=== PATIENT | female | born 1990 | race Caucasian/White ===

== ENCOUNTER 2021-07-19 14:43 | Outpatient (CLI) | payer MEDICAID, SELFPAY ==
--- NOTE | 2021-07-19 | DI.US_ITS ---
Exam(s) US PELVIS TRANSVAGINAL EXAM: US PELVIS TRANSVAGINAL CLINICAL HISTORY: PELVIC PAIN R10.2 ? OVARIAN CYST OR OVARIAN TORSION. TECHNIQUE: Transabdominal and transvaginal pelvic ultrasound was performed using standard protocol. COMPARISON: US OB US 2-3 TRIMESTER TRANSABD*P from 08/31/2012 FINDINGS: KIDNEYS: Congenitally absent right kidney. Left kidney measures 11.1 cm. No evidence of renal calcu li. No evidence of hydronephrosis. No renal mass or cyst identified. UTERUS: The patient has a uterus didelphys. This is a normal variant. Position: Retroverted. Size: Left: 7.3 long by 3.2 AP by 3.9 transverse cm. Right: 5.6 long by 3.7 AP by 2.9 transverse. Endometrium: Normal for patient's menstrual status. In the right uterus there is a round cystic struc ture present measuring 0.6 x 0.4 cm. There is a round internal structure present. The appearance ra ises a question of a intrauterine and yolk sac. Age based on the sac diameter would be 5 w eeks 2 days. Myometrium: Unremarkable. Cervix: Unremarkable. OVARIES: No evidence of torsion. Right: 1.2 x 0.5 x 0.8 cm Cyst or mass: None. Left: 2.3 x 1.3 x 1.5 cm Cyst or mass: None. DOPPLER: Color: Symmetric and uniform flow to both ovaries. No hyperemia. Duplex: Normal ovarian arterial waveforms visualized. CUL-DE-SAC: Free fluid: None. Other: None. IMPRESSION: 1. Congenitally absent right kidney. Unremarkable left kidney. 2. Uterine didelphys. 3. In the right endometrial canal there is a cystic structure with the appearance 7 intrauterine gest ation and yolk sac. Please correlate with the patient's beta HCG level. Estimated gestational age i s 5 weeks 2 days. 4. Unremarkable bilateral ovaries. No evidence of torsion. 5. Results of this exam have been verbally communicated with provider. DATA REPOSITORY:
== END 2021-07-19 15:03 ==
PROVIDERS: PCP Internal Medicine; Visit Provider Physician Assistant Medical
DX: R10.2 Pelvic and perineal pain (principal); Q51.28 Other and unspecified doubling of uterus; R93.5 Abnormal findings on diagnostic imaging of other abdominal regions, including retroperitoneum
CPT/HCPCS: 76830; 76856

== ENCOUNTER 2021-07-22 13:27 | Emergency (ER) | payer MEDICAID, SELFPAY ==
[2021-07-22 13:32] VITALS: BP 115/77; PULSE 100; RESP 16; TEMP 36.7; O2SAT 99
--- NOTE | 2021-07-22 13:42 | NUR.NOTE ---
Ambulates to restroom with steady gait. Instructed to provide clean catch urine specimen.Nursing Note:
--- NOTE | 2021-07-22 13:45 | DI.US_ITS ---
Exam(s) US PELVIS TRANSVAGINAL EXAM: US PELVIS TRANSVAGINAL CLINICAL HISTORY: vaginal bleeding TECHNIQUE: Transabdominal and transvaginal imaging was performed using standard protocol. COMPARISON: US US PELVIS TRANSVAGINAL from 07/19/2021 US US PELVIS TRANSVAGINAL from 07/19/2021 FINDINGS: KIDNEYS: Left kidney normal in size. Congenitally absent right kidney.. No evidence of renal calcul i. No evidence of hydronephrosis. No renal mass or cyst identified. UTERUS: Anteverted. Didelphys. 7.5 by 2.8 x 4.2 cm. Endometrium: 4 millimeters Myometrium: Unremarkable. Cervix: Several nabothian cysts. In the cervical region, there is a rounded cystic area with a centr al appearing cyst measuring 7 millimeters in greatest dimension. This could represent a gestational sac versus a complex nabothian cyst. No pole or cardiac activity is seen. OVARIES: Right: Cyst or mass: None. Left: Cyst or mass: None. DOPPLER: Color: Symmetric and uniform flow to both ovaries. No hyperemia. Duplex: Normal ovarian arterial waveforms visualized. CUL-DE-SAC: Free fluid: None. IMPRESSION: 1. Didelphys uterus. Cystic lesion in cervix is unchanged in size and appearance and may represent a complex cyst rather than gestational sac. 2. Unremarkable bilateral ovaries. DATA REPOSITORY:
[2021-07-22 14:07] VITALS: PULSE 82; RESP 16; O2SAT 100
[2021-07-22 14:09] LABS: Abs Immature Grans 0.02 10^3/uL (0.0-0.06); Absolute Basophil Count 0.02 10^3/uL (0.0-0.2); Absolute Eosinophil Count 0.12 10^3/uL (0.0-0.7); Absolute Lymphocyte Count 2.92 10^3/uL (1.2-3.4); Absolute Monocyte Count 0.79 10^3/uL (0.1-0.8); Basophils % 0.2; Eosinophils % 1.4; HGB 13.4 g/dL (11.2-15.7); Immature Grans % 0.2; Lymphocytes % 34.1; MCH 29.1 pg (27.0-33.0); MCHC 31.9 % (32.0-36.0); MCV 91.3 fL (80-95); MPV 11.1 fL (8.0-11.0); Monocytes % 9.2; Neutrophils % 54.9; Nucleated RBC 0 %; Platelet Count 231 10^3/uL (130-400); RDW 13.2 % (11.7-14.6); RDW-SD 43.6 fL; WBC 8.57 10^3/uL (4.4-10.8)
[2021-07-22 14:19] LABS: Bilirubin Negative (Negative); Blood Large (Negative); Clarity Clear (Clear); Glucose Negative (Negative); Ketones Negative (Negative); Leukocyte Esterase Negative (Negative); Nitrite Negative (Negative); Urobilinogen 0.2 EU/dL (Up TO 0.2); pH 5.5 (5-8)
[2021-07-22 14:27] LABS: Bacteria Negative HPF (Negative); C & S Indicated? No; Casts Negative LPF (Negative); Crystals Negative HPF (Negative); Epithelial Cells Rare HPF (Negative); Mucus Negative (Negative); WBC 0-2 HPF (0-5)
[2021-07-22 14:27] LABS: HCG Quant, Pregnancy < 1 mIU/mL (1-3)
--- NOTE | 2021-07-22 14:44 | NUR.NOTE ---
To DI for ultrasound per cart with technician trainee.Nursing Note:
--- NOTE | 2021-07-22 15:15 | ED.GENADUL_ITS ---
Discharge Plan Disposition Patient Disposition: HOME Condition: Stable Discharge Details Clinical Impression: Abdominal pain Primary Care Provider: Milan Loernzo ED Provider: Valentin Mena Home Meds and New Rx's Prescriptions: Continued Zafemy 150-35 mcg/24 hr patch weekly 1 patch transdermal DAILY RF: 0 Discharge Instructions Instructions: Abdominal Pain (ED) Additional Instructions: your lab work and ultrasound as well as cat scan did not show any emergent findings Follow up with your primary care provider and women's wellness [phone] if you feel more ill, have persistent vomit or fevers return to the emergency department Discharge Data Discharge Date/Time-TO BE ENTERED AT DEPARTURE: 07/22/21 18:30 Medical Decision Making <Flower Champagne MD - Last Filed: 07/29/21 08:08> Jeanie Jaquez is a 30-year-old woman G6, P3 who presented to emergency department with vaginal bleeding consistent with a heavy period per patient and suprapubic/right sided pelvic pain in setting of pelvic ultrasound 3 days ago showing possible IUP. On exam patient has suprapubic and right pelvic tenderness to palpation. Concern for ectopic, threatened/completed , ovarian torsion, hemorrhagic cyst, dysfunctional uterine bleeding, other less likely pelvic inflammatory disease, appendicitis or other acute intra-abdominal etiology of symptoms. Exam/history at this time is not consistent with sepsis, acute aortic pathology. Plan for IV placement, screening labs, pelvic ultrasound. Labs reviewed, hemoglobin 13.4, WBC 8.57, platelets 231, negative urine test, negative UA. Serum hCG is normal. Patient is not , continue with plan for pelvic ultrasound. Ultrasound shows gestational sac versus nabothian cyst, given normal serum hCG this finding represents cyst. I did discuss ultrasound findings with Dr. Nicky Boston of gynecology, who noted that given that patient never had positive test, it is unlikely that patient has been recently and gestational sac on ultrasound 3 days ago was likely this nabothian cyst. No further acute intervention recommended. On reassessment patient reports that she is continuing to have significant pain in the right pelvic area. Given laterality of pain with no right-sided ovarian findings on ultrasound, this is less likely to be PID/tubo-ovarian abscess, plan for CT to rule out appendicitis. Patient declines pelvic examination at this time. Patient signed out to Dr. Mena at time of shift change pending CT abdomen/pelvis and reassessment. Medical Records Medical records reviewed: Yes I reviewed the patient's medical records. Imaging Data Radiologic Study: Attestation: I personally reviewed and interpreted this imaging study as follows: Radiologist's impression: FINDINGS: KIDNEYS: Left kidney normal in size. Congenitally absent right kidney.. No evidence of renal calculi. No evidence of hydronephrosis. No renal mass or cyst identified. UTERUS: Anteverted. Didelphys. 7.5 by 2.8 x 4.2 cm. Endometrium: 4 millimeters Myometrium: Unremarkable. Cervix: Several nabothian cysts. In the cervical region, there is a rounded cystic area with a central appearing cyst measuring 7 millimeters in greatest dimension. This could represent a gestational sac versus a complex nabothian cyst. No pole or cardiac activity is seen. OVARIES: Right: Cyst or mass: None. Left: Cyst or mass: None. DOPPLER: Color: Symmetric and uniform flow to both ovaries. No hyperemia. Duplex: Normal ovarian arterial waveforms visualized. CUL-DE-SAC: Free fluid: None. IMPRESSION: 1. Didelphys uterus. Cystic lesion in cervix is unchanged in size and appearance and may represent a complex cyst rather than gestational sac. 2. Unremarkable bilateral ovaries. Lab Data Lab results reviewed: Yes I reviewed the patient's lab results. Labs: Laboratory Tests Range/Units 07/22/21 07/22/21 07/22/21 13:45 13:55 13:55 WBC (4.4-10.8) 10^3/uL 8.57 RBC (3.93-5.22) 10^6/uL 4.60 Hgb (11.2-15.7) g/dL 13.4 Hct (36.0-46.0) % 42.0 MCV (80-95) fL 91.3 MCH (27.0-33.0) pg 29.1 MCHC (32.0-36.0) % 31.9 L RDW (11.7-14.6) % 13.2 Plt Count (130-400) 10^3/uL 231 MPV (8.0-11.0) fL 11.1 H Immature Gran % 0.2 Neutrophils % 54.9 Lymphocytes % 34.1 Monocytes % 9.2 Eosinophils % 1.4 Basophils % 0.2 Nucleated RBC % % 0 Absolute Neutrophils (1.2-6.7) 10^3/uL 4.70 Absolute Lymphocytes (1.2-3.4) 10^3/uL 2.92 Absolute Monocytes (0.1-0.8) 10^3/uL 0.79 Absolute Eosinophils (0.0-0.7) 10^3/uL 0.12 Absolute Basophils (0.0-0.2) 10^3/uL 0.02 Beta HCG, Quant (1-3) mIU/mL < 1 L Urine Color (Yellow) Yellow Urine Clarity (Clear) Clear Urine pH (5-8) 5.5 Ur Specific [place] (1.005-1.025) 1.010 Urine Protein (Negative) mg/dL Negative Urine Ketones (Negative) mg/dL Negative Urine Blood (Negative) Large H Urine Nitrite (Negative) Negative Urine Bilirubin (Negative) Negative Urine Urobilinogen (Up TO 0.2) EU/dL 0.2 Ur Leukocyte Esterase (Negative) Negative Urine RBC (0-2) HPF 10-20 H Urine WBC (0-5) HPF 0-2 Ur Epithelial Cells (Negative) HPF Rare Urine Crystals (Negative) HPF Negative Urine Bacteria (Negative) HPF Negative Urine Casts (Negative) LPF Negative Urine Mucus (Negative) Negative Ur Culture Indicated? No Urine Glucose (Negative) mg/dL Negative Patient ABO/Rh Antibody Screen Range/Units 07/22/21 13:55 WBC (4.4-10.8) 10^3/uL RBC (3.93-5.22) 10^6/uL Hgb (11.2-15.7) g/dL Hct (36.0-46.0) % MCV (80-95) fL MCH (27.0-33.0) pg MCHC (32.0-36.0) % RDW (11.7-14.6) % Plt Count (130-400) 10^3/uL MPV (8.0-11.0) fL Immature Gran % Neutrophils % Lymphocytes % Monocytes % Eosinophils % Basophils % Nucleated RBC % % Absolute Neutrophils (1.2-6.7) 10^3/uL Absolute Lymphocytes (1.2-3.4) 10^3/uL Absolute Monocytes (0.1-0.8) 10^3/uL Absolute Eosinophils (0.0-0.7) 10^3/uL Absolute Basophils (0.0-0.2) 10^3/uL Beta HCG, Quant (1-3) mIU/mL Urine Color (Yellow) Urine Clarity (Clear) Urine pH (5-8) Ur Specific [place] (1.005-1.025) Urine Protein (Negative) mg/dL Urine Ketones (Negative) mg/dL Urine Blood (Negative) Urine Nitrite (Negative) Urine Bilirubin (Negative) Urine Urobilinogen (Up TO 0.2) EU/dL Ur Leukocyte Esterase (Negative) Urine RBC (0-2) HPF Urine WBC (0-5) HPF Ur Epithelial Cells (Negative) HPF Urine Crystals (Negative) HPF Urine Bacteria (Negative) HPF Urine Casts (Negative) LPF Urine Mucus (Negative) Ur Culture Indicated? Urine Glucose (Negative) mg/dL Patient ABO/Rh A Positive Antibody Screen NEGATIVE <Valentin Mena MD - Last Filed: 07/22/21 18:19> Patients ct shows no acute findings, has congenital absent right kidney she was aware of already and also mullerian duct anomaly of the uterus. She is stable, still has pain but has no tenderness or guarding of the abdomen, localizes the pain to the lower pelvis. Her u/s showed no torsion or other emergent findings. I offered to do a pelvic and speculum exam but she declined. I will have her f/u with obgyn as an outpatient, return precautions given Imaging Data Radiologic Study: Attestation: I personally reviewed and interpreted this imaging study as follows: Imaging: CT Scan Radiologist's impression: FINDINGS: Liver: Normal. No mass. Gallbladder and bile ducts: Normal. No calcified stones. No ductal dilation. Pancreas: Normal. No ductal dilation. Spleen: Normal. No splenomegaly. Adrenal glands: Normal. No mass. Kidneys and ureters: The right kidney is absent and the left kidney is slightly increased in size. No hydronephrosis or nephrolithiasis. Stomach and bowel: No obstruction. No mucosal thickening. Appendix: No evidence of appendicitis. Intraperitoneal space: No free air. No significant fluid collection. Vasculature: No abdominal aortic aneurysm. Lymph nodes: No enlarged lymph nodes. Urinary bladder: The urinary bladder is unremarkable. 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 Foci of hyperdensity within the uterine canal may represent hemorrhage or contrast enhancement. The right vaginal canal is only partially visualized, therefore correlate with physical examination findings to evaluate for any subcutaneous lesion. Bones/joints: No acute fracture. 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 Soft tissues: Unremarkable. IMPRESSION: 1. No acute bowel findings. 2. Incidentally noted uterine anomaly. Hyperdensity within the uterine canal may represent hemorrhage or enhancement. 3. Incidentally noted absent right kidney, with mild compensatory hypertrophy of the left kidney HPI <Flower Champagne MD - Last Filed: 07/29/21 08:08> General Mode of arrival: ambulatory . Date/Time Provider Initiated Documentation: 07/22/21 13:49 . Limitations to Documentation: no limitations . Information obtained by: patient, RN notes reviewed and old records reviewed . HPI Narrative: Jeanie Jaquez is a 30-year-old woman without reported history of major medical problems presenting to the emergency department with vaginal bleeding and pelvic pain. Patient reports that her last menstrual period was approximately 3 weeks ago. She states that she had a pelvic ultrasound here 3 days ago showing possible intrauterine . Patient reports that she developed cramping and vaginal bleeding last night. Is passing small clots. Patient reports that pain is constant unchanged since onset, suprapubic and right pelvic area, cramping sensation. Patient reports that she has 3 living children and has had 2 prior miscarriages. She denies any other pain, fever, shortness of breath, cough, vomiting, diarrhea, dysuria, numbness, weakness. Related Data Home Medications Medication Instructions Recorded Confirmed Zafemy 1 patch TRANSDERMAL DAILY 07/22/21 07/22/21 Allergies Allergy/AdvReac Type Severity Reaction Status Date / Time Sulfa (Sulfonamide Allergy Intermediate Hives Unverified 07/22/21 13:36 Antibiotics) General Stated Complaint: [employer] MARQUISE: 3 Review of Systems <Flower Champagne MD - Last Filed: 07/29/21 08:08> Narrative: Constitutional: denies fevers Eyes: denies eye pain ENT: denies ear pain, dental pain, sore throat Cardiovascular: denies chest pain, edema Respiratory: denies SOB, cough GI: denies vomiting, diarrhea, reports abdominal/pelvic pain as per HPI : denies flank pain, reports vaginal bleeding MSK: denies back pain, neck pain, arthralgias, myalgias Skin: denies rash Neuro: denies headaches, numbness, weakness PFSH <Flower Champagne MD - Last Filed: 07/29/21 08:08> Social History Smoking/Tobacco Use Status: Current every day Tobacco Type: cigarettes Smoking risk assessment performed?: Yes Alcohol Intake: never Drug use: Never Substance use type: does not use Do you feel safe at home: Yes Do you feel safe in your relationship?: Yes Exam <Flower Champagne MD - Last Filed: 07/29/21 08:08> Narrative Exam Narrative: Constitutional: well and [id number], pleasant, conversing normally HENT: head atraumatic/normocephalic/normal inspection, mucous membranes moist Eyes: conjunctiva normal, sclera normal, pupils 3mm b/l Neck: no stridor, normal ROM, trachea midline Resp: normal work of breathing, speaking in full sentences Cardio: normal rate, normal rhythm GI: abdomen soft, tenderness to palpation suprapubic area, right pelvic area, no McBurney's point tenderness to palpation, no rebound, no guarding, negative Sosa's, non-distended Back: normal inspection, no rash, no CVA tenderness to palpation Skin: warm, dry, normal color, no rash Neuro: alert, not altered, grossly non-focal, normal tone Ext: no edema, no posterior calf tenderness to palpation Psych: normal mood, normal affect, normal behavior Course <Flower Champagne MD - Last Filed: 07/29/21 08:08> Vital Signs Vital signs: Vital Signs Temperature 36.7 C 07/22/21 13:32 Pulse 100 H 07/22/21 13:32 Respiratory Rate 16 07/22/21 13:32 Blood Pressure 115/77 07/22/21 13:32 Pulse Oximetry 99 07/22/21 13:32 Temperature 36.7 C 07/22/21 13:32 Temperature Source Temporal Artery Scan 07/22/21 13:32 Pulse 82 07/22/21 14:07 Respiratory Rate 16 07/22/21 14:07 Respiratory Effort Non-Labored 07/22/21 13:38 Blood Pressure 115/77 07/22/21 13:32 Blood Pressure Position Sitting 07/22/21 13:32 Pulse Oximetry 100 07/22/21 14:07 Oxygen Delivery Method Room Air 07/22/21 14:07 Oxygen Flow Rate 0 07/22/21 14:07 Lab/Test Results Lab/Test Results: Laboratory Tests Range/Units 07/22/21 07/22/21 07/22/21 13:45 13:55 13:55 WBC (4.4-10.8) 10^3/uL 8.57 RBC (3.93-5.22) 10^6/uL 4.60 Hgb (11.2-15.7) g/dL 13.4 Hct (36.0-46.0) % 42.0 MCV (80-95) fL 91.3 MCH (27.0-33.0) pg 29.1 MCHC (32.0-36.0) % 31.9 L RDW (11.7-14.6) % 13.2 Plt Count (130-400) 10^3/uL 231 MPV (8.0-11.0) fL 11.1 H Immature Gran % 0.2 Neutrophils % 54.9 Lymphocytes % 34.1 Monocytes % 9.2 Eosinophils % 1.4 Basophils % 0.2 Nucleated RBC % % 0 Absolute Neutrophils (1.2-6.7) 10^3/uL 4.70 Absolute Lymphocytes (1.2-3.4) 10^3/uL 2.92 Absolute Monocytes (0.1-0.8) 10^3/uL 0.79 Absolute Eosinophils (0.0-0.7) 10^3/uL 0.12 Absolute Basophils (0.0-0.2) 10^3/uL 0.02 Beta HCG, Quant (1-3) mIU/mL < 1 L Urine Color (Yellow) Yellow Urine Clarity (Clear) Clear Urine pH (5-8) 5.5 Ur Specific [place] (1.005-1.025) 1.010 Urine Protein (Negative) mg/dL Negative Urine Ketones (Negative) mg/dL Negative Urine Blood (Negative) Large H Urine Nitrite (Negative) Negative Urine Bilirubin (Negative) Negative Urine Urobilinogen (Up TO 0.2) EU/dL 0.2 Ur Leukocyte Esterase (Negative) Negative Urine RBC (0-2) HPF 10-20 H Urine WBC (0-5) HPF 0-2 Ur Epithelial Cells (Negative) HPF Rare Urine Crystals (Negative) HPF Negative Urine Bacteria (Negative) HPF Negative Urine Casts (Negative) LPF Negative Urine Mucus (Negative) Negative Ur Culture Indicated? No Urine Glucose (Negative) mg/dL Negative Patient ABO/Rh Antibody Screen Range/Units 07/22/21 13:55 WBC (4.4-10.8) 10^3/uL RBC (3.93-5.22) 10^6/uL Hgb (11.2-15.7) g/dL Hct (36.0-46.0) % MCV (80-95) fL MCH (27.0-33.0) pg MCHC (32.0-36.0) % RDW (11.7-14.6) % Plt Count (130-400) 10^3/uL MPV (8.0-11.0) fL Immature Gran % Neutrophils % Lymphocytes % Monocytes % Eosinophils % Basophils % Nucleated RBC % % Absolute Neutrophils (1.2-6.7) 10^3/uL Absolute Lymphocytes (1.2-3.4) 10^3/uL Absolute Monocytes (0.1-0.8) 10^3/uL Absolute Eosinophils (0.0-0.7) 10^3/uL Absolute Basophils (0.0-0.2) 10^3/uL Beta HCG, Quant (1-3) mIU/mL Urine Color (Yellow) Urine Clarity (Clear) Urine pH (5-8) Ur Specific [place] (1.005-1.025) Urine Protein (Negative) mg/dL Urine Ketones (Negative) mg/dL Urine Blood (Negative) Urine Nitrite (Negative) Urine Bilirubin (Negative) Urine Urobilinogen (Up TO 0.2) EU/dL Ur Leukocyte Esterase (Negative) Urine RBC (0-2) HPF Urine WBC (0-5) HPF Ur Epithelial Cells (Negative) HPF Urine Crystals (Negative) HPF Urine Bacteria (Negative) HPF Urine Casts (Negative) LPF Urine Mucus (Negative) Ur Culture Indicated? Urine Glucose (Negative) mg/dL Patient ABO/Rh A Positive Antibody Screen NEGATIVE POC- Test(urine) Negative Sign Out <Flower Champagne MD - Last Filed: 07/29/21 08:08> Sign Out Data: Sign Out Comment: Patient signed out to Dr. Mena at time of shift change with CT abd/pelv, reassessment pending. Last updated by Flower Champagne MD at 07/22/21 16:34
[2021-07-22 15:33] VITALS: BP 96/55; PULSE 60; RESP 16; O2SAT 100
[2021-07-22 16:12] VITALS: BP 98/57; PULSE 70; RESP 16; O2SAT 99
--- NOTE | 2021-07-22 16:30 | DI.CT_ITS ---
Exam(s) CT ABDOMEN PELVIS W EXAM: CT ABDOMEN PELVIS W CLINICAL HISTORY: RLQ/right pelvic pain TECHNIQUE: Imaging Protocol: Axial computed tomography images with coronal and sagittal reformatted images were created and reviewed CONTRAST MATERIAL: Intravenous: Omnipaque 350 Contrast volume:77 mL Oral: No COMPARISON: US US PELVIS TRANSVAGINAL from 07/22/2021 US US PELVIS TRANSVAGINAL from 07/22/2021 FINDINGS: The examination is limited due to patient motion artifact. ABDOMEN: Lung Bases: Normal where visualized. Liver: Normal density. No measurable mass. Portal, Superior Mesenteric, and Splenic Veins: Unremarkable. Gallbladder and Biliary Tract: No radiodense calculus or dilation. Pancreas: Normal density, no abnormal calcifications or inflammatory process. Spleen: Normal. Adrenals: No masses seen. Kidneys: There is an absent right kidney. There is compensatory hypertrophy of the left kidney. The re is a 1-2 mm nonobstructing stone in the lower pole of the left kidney. No masses seen. Abdominal Aorta: Abdominal portion non-dilated. Minimal atherosclerosis. Bowel: No obstruction or bowel wall thickening. No evidence of appendicitis. Peritoneal Cavity: Trace amount of free fluid in the pelvis. No free air. Lymph Nodes: Within normal limits. Bones: Within normal limits for the patient's age. 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 No ankylosis is pre sent. Soft Tissues: Unremarkable. PELVIS: Bladder: Symmetric distention, no gross wall thickening. Reproductive Organs: There is a uterus didelphys present. There is a rounded area of hypodensity in the left cervix canal. This corresponds to the cystic structure seen on the ultrasound from the same day. Lymph Nodes: Within normal limits. Bones: Within normal limits for the patient's age. IMPRESSION: 1. No acute abdominal or pelvic process. 2. Noted uterine didelphys with an absent right kidney and compensatory hypertrophy of the left kidne y. RADIATION DOSE DELIVERED: 534.72mGy.cm Total DLP DATA REPOSITORY: All CT scans at this facility are submitted to the National Radiology Data Registry (NRDR) Dose Index Registry (DIR) with the [employer] (A[employer]). RADIATION OPTIMIZATION: All CT scans at this facility use at least one of these dose optimization te chniques: automated exposure control; mA and/or kV adjustment per patient size (includes targeted exa ms where dose is matched to clinical indication); or iterative reconstruction.
[2021-07-22] MEDS: Normal Saline - Diluent 50 ML VIAL IV (16:52)
[2021-07-22] MEDS: Normal Saline Flush 10 ML SYR IVP (16:55)
[2021-07-22] MEDS: Omnipaque 350 MG/ML 100 ML BTL IJ (16:55)
--- NOTE | 2021-07-22 16:57 | NUR.NOTE ---
Returns from DI per cart.Nursing Note:
[2021-07-22 17:53] VITALS: BP 99/55; PULSE 70; RESP 14; TEMP 37; O2SAT 100
--- NOTE | 2021-07-22 17:55 | DI.VRAD_ITS ---
PROCEDURE INFORMATION: Exam: CT Abdomen And Pelvis With Contrast Exam date and time: 07/22/2021 4:34 PM Age: 30 years old Clinical indication: Rlq/right pelvic pain TECHNIQUE: Imaging protocol: Computed tomography of the abdomen and pelvis with contrast. Contrast material: OMNIPAQUE 350; Contrast volume: 77 ml; Contrast route: INTRAVENOUS (IV); COMPARISON: US PELVIS TRANSVAGINAL 07/22/2021 2:42 PM FINDINGS: Liver: Normal. No mass. Gallbladder and bile ducts: Normal. No calcified stones. No ductal dilation. Pancreas: Normal. No ductal dilation. Spleen: Normal. No splenomegaly. Adrenal glands: Normal. No mass. Kidneys and ureters: The right kidney is absent and the left kidney is slightly increased in size. No hydronephrosis or nephrolithiasis. Stomach and bowel: No obstruction. No mucosal thickening. Appendix: No evidence of appendicitis. Intraperitoneal space: No free air. No significant fluid collection. Vasculature: No abdominal aortic aneurysm. Lymph nodes: No enlarged lymph nodes. Urinary bladder: The urinary bladder is unremarkable. 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 Foci of hyperdensity within the uterine canal may represent hemorrhage or contrast enhancement. The right vaginal canal is only partially visualized, therefore correlate with physical examination findings to evaluate for any subcutaneous lesion. Bones/joints: No acute fracture. 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 Soft tissues: Unremarkable. IMPRESSION: 1. No acute bowel findings. 2. Incidentally noted uterine anomaly. Hyperdensity within the uterine canal may represent hemorrhage or enhancement. 3. Incidentally noted absent right kidney, with mild compensatory hypertrophy of the left kidney. Dictated and Authenticated by: Dianne Gross MD. Ordering:GIGI Crenshaw MD
[2021-07-22] MEDS: Ketorolac 30 MG/ML VIAL IM (18:29)
== END 2021-07-22 18:30 | disposition home or self-care (01) ==
PROVIDERS: Student in an Organized Health Care Education/Training Program; Emergency Provider Emergency Medicine; PCP Internal Medicine
DX: R10.10 Upper abdominal pain, unspecified (principal); N93.8 Other specified abnormal uterine and vaginal bleeding; Q51.818 Other congenital malformations of uterus
CPT/HCPCS: 36415; 81025; 86850; 86900; 86901; 96372; 99285; 74177; 76830; 76856; 81003; 81015; 84702; 85025; 99281; J1885; J3490